=== PATIENT | male | born 1970 | race Caucasian/White ===

== ENCOUNTER 2021-08-03 09:05 | Day surgery (SDC) | payer OTHER ==
[2021-08-01 14:00] VITALS: BMI 28.7
[~2021-08-03 09:05] MED LIST: LACTATED RINGERS 1,000 ML IV SCH
[2021-08-03 09:34] VITALS: TEMP 97.2
[2021-08-03] MEDS ORDERED: fentaNYL (PF) 50 MCG/ML 2 ML AMP ONE (10:08)
[2021-08-03] MEDS ORDERED: ONDANSETRON 4 MG/2 ML VIAL ONE (10:08)
[2021-08-03] MEDS ORDERED: MIDAZOLAM 2 MG/2 ML VIAL ONE (10:08)
[2021-08-03] MEDS ORDERED: PROPOFOL 10 MG/ML 20 ML VIAL IV ONE (10:08)
[2021-08-03] MEDS ORDERED: LIDOCAINE 1% INJ 10MG/ML (20 ML MDV) ONE (10:08)
--- NOTE | 2021-08-03 10:19 | P.PCN ---
Date of Procedure: 08/03/21 Procedure(s) Performed: BRIEF HISTORY: Patient is a 50-year-old, pleasant, white male scheduled for an upper endoscopy as a part of evaluation of epigastric discomfort and passive regurgitation for a few months duration. He was started on omeprazole 20 mg daily with some improvement in his symptoms. He scheduled for an upper endoscopy to rule out peptic ulcer disease.. PROCEDURE PERFORMED: Esophagogastroduodenoscopy with biopsy. PREOPERATIVE DIAGNOSIS: Epigastric pain and passive regurgitation of 3 months duration. IV sedation per anesthesia. PROCEDURE: After informed consent was obtained, the patient was brought into the endoscopy unit. IV sedation was administered by Anesthesia under continuous monitoring. Initially the Olympus GIF-140 video endoscope was inserted into the mouth. Esophagus intubated without any difficulty. It was gradually advanced into the stomach and duodenum and carefully examined. The bulb and the second part of the duodenum appeared normal. Abscesses were done from the duodenum to rule out celiac disease. The scope at this time was withdrawn to the stomach, adequately insufflated with air, and upon careful examination, mucosa of the antrum, and mild gastritis and biopsies were done from this area. The body, cardia and the fundus appeared normal. The scope was then withdrawn into the esophagus. Small hiatal hernia noted. The GE junction was located at 39 cm from the incisors. The esophagus appeared normal. There were no erosions or ulcerations seen and the patient tolerated the procedure well. IMPRESSION: 1 Mild antral gastritis. 2. Small hiatal hernia but no evidence of esophagitis or Pulido's esophagus. RECOMMENDATIONS: The findings of this examination were discussed with the patient as well as his family. He was advised to follow with the biopsy results and continue with omeprazole 20 mg daily but take it at Dinnertime and f ollow antireflux Measures..
[2021-08-03 10:43] VITALS: BP 116/74; PULSE 74; RESP 16
== END 2021-08-03 11:12 | disposition home or self-care (01) ==
LOC: ORWHC2ENDO 09:05
PROVIDERS: ATTEND Internal Medicine Gastroenterology
DX: K29.50 Unspecified chronic gastritis without bleeding (principal); K44.9 Diaphragmatic hernia without obstruction or gangrene; Z79.899 Other long term (current) drug therapy; Z87.09 Personal history of other diseases of the respiratory system
CPT/HCPCS: 88305; 43239; J2250; J2405; J2001; J3010; J2704